=== PATIENT | male | born 1985 | race Caucasian/White ===

== ENCOUNTER 2019-08-31 03:17 | Emergency (ER) | payer SELFPAY ==
[~2019-08-31] VITALS: Ht 180.3 cm; Wt 102.5 kg
[2019-08-31 03:19] VITALS: Ht 180.3 cm; Wt 102.5 kg
[2019-08-31 04:05] LABS: BASOPHIL % 0.4 % (0-2); PLATELET COUNT 171 x10^3mcL (130-400); RED CELL DISTRIBUTION WIDTH 12.6 % (11.5-14.5)
[2019-08-31 04:25] LABS: CALCIUM 8.9 mg/dL (8.5-10.1); CHLORIDE SERUM 98 mmol/L (98-107); CREATININE SERUM 0.8 mg/dL (0.7-1.3); GFR1 > 60 mL/min; GLUCOSE SERUM 365 mg/dL (74-106); POTASSIUM SERUM 3.4 mmol/L (3.5-5.1); SODIUM SERUM 135 mmol/L (136-145)
[2019-08-31 04:29] LABS: ALBUMIN 4.1 g/dL (3.4-5.0); ALKALINE PHOSPHATASE 79 U/L (46-116); ALT/SGPT 38 U/L (16-63); AST/SGOT 9 U/L (15-37); BILIRUBIN TOTAL 0.56 mg/dL (0.20-1.00); TOTAL PROTEIN, SERUM 7.9 g/dL (6.4-8.2)
[2019-08-31 05:05] VITALS: BP 115/65
== END 2019-08-31 05:05 | disposition other institution (70) ==
LOC: ED 03:17
PROVIDERS: Emergency Medicine
DX: E11.65 Type 2 diabetes mellitus with hyperglycemia (principal)
CPT/HCPCS: 82962; J1815

== ENCOUNTER 2019-08-31 03:17 | Emergency (ER) | payer OTHER | END 2019-08-31 05:05 | disposition other institution (70) | LOC: ED 03:17 | DX: Z02.89 Encounter for other administrative examinations (principal) ==